=== PATIENT | male | born 1990 | race Caucasian/White ===

== ENCOUNTER 2016-12-27 14:48 | Emergency (ER) | payer OTHER ==
[2016-12-27 15:24] VITALS: BP 142/74
== END 2016-12-27 18:30 | disposition home or self-care (01) ==
LOC: ED 14:48
DX: L60.0 Ingrowing nail (principal); J45.909 Unspecified asthma, uncomplicated
CPT/HCPCS: J3490

== ENCOUNTER 2017-04-23 21:52 | Emergency (ER) | payer OTHER ==
[2017-04-23 23:27] VITALS: BP 122/60
== END 2017-04-23 23:27 | disposition home or self-care (01) ==
LOC: ED 21:52
DX: L60.0 Ingrowing nail (principal); B35.3 Tinea pedis

== ENCOUNTER 2017-04-30 03:26 | Emergency (ER) | payer OTHER ==
[~2017-04-30] VITALS: Ht 170.2 cm; Wt 61.8 kg
[2017-04-30 04:25] VITALS: BP 136/65
== END 2017-04-30 04:25 | disposition home or self-care (01) ==
LOC: ED 03:26
DX: M79.675 Pain in left toe(s) (principal)

== ENCOUNTER 2017-08-17 11:42 | Emergency (ER) | payer OTHER ==
[~2017-08-17] VITALS: Ht 170.2 cm; Wt 58.0 kg
[2017-08-17 12:01] VITALS: Ht 170.2 cm; Wt 58.0 kg
[2017-08-17 15:50] VITALS: BP 130/76
== END 2017-08-17 15:50 | disposition home or self-care (01) ==
LOC: ED 11:42
DX: H52.10 Myopia, unspecified eye (principal); R51 Headache; J45.909 Unspecified asthma, uncomplicated
CPT/HCPCS: J2550; J7030

== ENCOUNTER 2019-10-07 17:41 | Emergency (ER) | payer OTHER ==
[~2019-10-07] VITALS: Ht 170.2 cm; Wt 67.1 kg
[2019-10-07 18:06] VITALS: Ht 170.2 cm; Wt 67.1 kg
[2019-10-07 21:15] VITALS: BP 129/69
== END 2019-10-07 21:16 | disposition home or self-care (01) ==
LOC: ED 17:41
DX: L60.0 Ingrowing nail (principal); L98.9 Disorder of the skin and subcutaneous tissue, unspecified; J45.909 Unspecified asthma, uncomplicated
CPT/HCPCS: J2001